=== PATIENT | male | born 1955 | race Caucasian/White ===

== ENCOUNTER 2021-05-18 03:35 | Outpatient (CLI) | payer MEDICAID, SELFPAY ==
[2021-05-18 16:01] LABS: Absolute Lymphocyte Count 1.48 10^3/uL (1.2-3.4); Absolute Monocyte Count 1.46 10^3/uL (0.1-0.8); Basophils % 0.3; Eosinophils % 1.3; HCT 36.7 % (40.0-50.0); HGB 13.2 g/dL (13.5-17.5); Immature Grans % 0.7; Lymphocytes % 9.7; MCH 33.6 pg (27.0-33.0); MCV 93.4 fL (80-95); Monocytes % 9.6; Neutrophils % 78.4; Nucleated RBC 0 %; Platelet Count 261 10^3/uL (130-400); RBC 3.93 10^6/uL (4.36-5.78); RDW 14.8 % (11.8-14.1); RDW-SD 49.8 fL; WBC 15.22 10^3/uL (4.4-10.8)
[2021-05-18 16:02] LABS: Absolute Basophil Count 0.05 10^3/uL (0.0-0.2); Absolute Neutrophil Count 11.93 10^3/uL (1.2-6.7)
[2021-05-18 16:13] LABS: ALT 116 U/L (16-63); AST 171 U/L (15-37); Alkaline Phosphatase 972 U/L (46-116); Anion Gap 3.3 mmol/L (3-11); BUN 15 mg/dL (7-18); Bilirubin, Total 8.6 mg/dL (0.2-1.0); CO2 34.7 mmol/L (21.0-32.0); CREATININE 0.8 mg/dL (0.70-1.30); Calcium 8.2 mg/dL (8.5-10.1); Chloride 94 mmol/L (98-107); Glucose 114 mg/dL (74-106); Potassium 3.6 mmol/L (3.5-5.1); Sodium 132 mmol/L (136-145); Total Protein 6.1 g/dL (6.4-8.2)
[2021-05-21 09:09] LABS: CA 19-9 209 U/mL (<35)
== END 2021-05-18 03:36 | disposition home or self-care (01) ==
LOC: LBO 03:35
PROVIDERS: PCP Family Medicine; Visit Provider Internal Medicine Hematology & Oncology
DX: C22.1 Intrahepatic bile duct carcinoma (principal); C78.6 Secondary malignant neoplasm of retroperitoneum and peritoneum
CPT/HCPCS: 36415; 80053; 85025; 86301

== ENCOUNTER 2021-05-25 02:40 | Outpatient (CLI) | payer MEDICAID, SELFPAY ==
[2021-05-25 12:06] LABS: Abs Immature Grans 0.16 10^3/uL (0.0-0.06); Absolute Basophil Count 0.02 10^3/uL (0.0-0.2); Absolute Monocyte Count 1.24 10^3/uL (0.1-0.8); Basophils % 0.1; Eosinophils % 0.2; HCT 36.6 % (40.0-50.0); MCH 33.7 pg (27.0-33.0); MCHC 35.5 % (32.0-36.0); MCV 94.8 fL (80-95); MPV 10.6 fL (8.0-11.0); Monocytes % 7.4; Neutrophils % 84.3; Nucleated RBC 0 %; Platelet Count 213 10^3/uL (130-400); RBC 3.86 10^6/uL (4.36-5.78); RDW 15.4 % (11.8-14.1); RDW-SD 52.1 fL
[2021-05-25 12:09] LABS: Absolute Eosinophil Count 0.03 10^3/uL (0.0-0.7); Absolute Lymphocyte Count 1.18 10^3/uL (1.2-3.4); Absolute Neutrophil Count 14.16 10^3/uL (1.2-6.7)
[2021-05-25 12:24] LABS: ALT 44 U/L (16-63); AST 80 U/L (15-37); Albumin 1.7 g/dL (3.4-5.0); Alkaline Phosphatase 662 U/L (46-116); Anion Gap 3.2 mmol/L (3-11); BUN 23 mg/dL (7-18); Bilirubin, Total 3.7 mg/dL (0.2-1.0); CO2 36.8 mmol/L (21.0-32.0); Chloride 91 mmol/L (98-107); Glucose 136 mg/dL (74-106); Sodium 131 mmol/L (136-145); Total Protein 5.6 g/dL (6.4-8.2)
[2021-05-28 10:09] LABS: CA 19-9 282 U/mL (<35)
== END 2021-05-25 02:41 | disposition home or self-care (01) ==
LOC: LBO 02:40
PROVIDERS: PCP Family Medicine; Visit Provider Internal Medicine Hematology & Oncology
DX: C22.1 Intrahepatic bile duct carcinoma (principal); C78.6 Secondary malignant neoplasm of retroperitoneum and peritoneum
CPT/HCPCS: 36415; 80053; 85025; 86301